=== PATIENT | female | born 1990 | race African-American/Black ===

== ENCOUNTER 2020-12-05 08:01 | Emergency (ER) | payer OTHER, SELFPAY ==
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
[2020-12-05 08:08] VITALS: BP 143/78; PULSE 78; RESP 18; O2SAT 100
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
[2020-12-05] MEDS: NAPROXEN 500 MG TABLET PO (08:56)
[2020-12-05 09:59] VITALS: BP 129/68; PULSE 72; RESP 18; O2SAT 100
== END 2020-12-05 10:05 | disposition home or self-care (01) ==
PROVIDERS: Emergency Provider Emergency Medicine
DX: S80.01XA Contusion of right knee, initial encounter (principal); F17.200 Nicotine dependence, unspecified, uncomplicated; V49.9XXA Car occupant (driver) (passenger) injured in unspecified traffic accident, initial encounter
CPT/HCPCS: 73140; 73562; 99283; A9270

== ENCOUNTER 2022-07-03 13:14 | Emergency (ER) | payer OTHER, SELFPAY ==
--- NOTE | 2022-07-03 13:23 | ED.URI ---
HPI - URI/Sore Throat General Stated Complaint: Sore Throat Time Seen by Provider: 07/03/22 13:23 Source: patient Mode of arrival: ambulatory Limitations: no limitations History of Present Illness HPI Narrative: Ms. Beltran is a 31-year-old female patient presenting to clinic today with complaints of a sore throat, chills, body aches, and congestion x4 days. She reports she has had a low-grade fever. No known strep, COVID, or flu exposure MD elicited complaint: sore throat and nasal congestion Related Data Allergies Allergy/AdvReac Type Severity Reaction Status Date / Time No Known Drug Allergies Allergy Verified 10/15/13 13:00 Review of Systems Review of Systems: Pertinent positives per HPI. Patient denies any rash, headache, visual changes, dizziness, cough, shortness of breath, chest pain, palpitations, nausea, vomiting, diarrhea, constipation, abdominal pain, or any urinary issues. PMFSH Family History Family History Mother Patient's mother is in good health Father Patient's father is in good health Sibling Patient's sister is in good health Patient's brother is in good health Social History Social History Smoking status: Light tobacco smoker Second hand tobacco smoke exposure: No Alcohol intake: current Comments At the time of my signature, I reviewed and agree with the nursing past medical, surgical, social, and family history. There is no relevant family history pertinent to the patient complaint. Exam Narrative: General: Well-developed, well nourished, in no apparent distress Head: Normocephalic, atraumatic Eyes: Pupils equally round and reactive to light bilaterally, EOM intact, sclera and conjunctive clear, no discharge, lids normal Ears: TMs intact and clear, ear canals clear, no drainage, grossly hearing normal. Nose: Nares patent, clear nasal discharge, no inflammation, no sinus tenderness. Mouth: Oral pharynx without lesions or masses, good dentition, MMM. oropharynx red Neck: Supple, trachea midline, no enlargement of anterior or posterior cervical nodes, no thyroid masses or goiter palpable. Cardio: Regular rate and rhythm, s1 and s2 normal, no murmur appreciated. Resp: Clear to auscultation bilaterally, no rhonchi, rales, wheezing or rubs Course Course Emergency Course: Portions of this record may have been created with voice recognition software. Level of Care: Express Care Visit Vital Signs Vital signs: Vital signs reviewed MDM - URI/Sore Throat MDM Narrative Medical decision making narrative: at the time of visit patient is resting comfortably on the exam table. Influenza and strep test were completed influenza a was positive. We will send strep for culture. Supportive measures were discussed with the patient and she voiced understanding discharge instructions agrees to treatment plan. Prescription for Tamiflu sent to the pharmacy Differential Diagnosis Differential diagnosis: Likely upper respiratory infection, otitis media, sinusitis, viral infection, bronchitis, influenza, pharyngitis and other ( COVID) Discharge Plan Discharge Clinical Impression: Influenza A Patient Disposition: Home, Self-Care Condition: Stable Instructions: Antibiotic Form, Influenza (ED) Additional Instructions: Strep test was negative in the clinic today. We will send for culture. Influenza was positive for influenza A Take prescription medications only as prescribed- Tamiflu Increase fluids and stay well hydrated Tylenol/motrin for pain/fever Flonase and OTC antihistamines as directed Vicks vapor rub to open sinuses Sinus rinses for congestion Cepacol spray, cough drops, throat lozenges, warm tea with honey/lemon, gargle salt water to soothe throat BRAT diet for diarrhea Clear liquids x 24 hours then advance as tolerated for nausea/vo
[2022-07-03 13:26] VITALS: BP 149/80; PULSE 89; RESP 20; TEMP 36.9; O2SAT 100
== END 2022-07-03 14:02 | disposition home or self-care (01) ==
PROVIDERS: Emergency Provider Nurse Practitioner Family
DX: J10.1 Influenza due to other identified influenza virus with other respiratory manifestations (principal); F17.290 Nicotine dependence, other tobacco product, uncomplicated
CPT/HCPCS: 87081; 87804; 87880; 99213; G0463